=== PATIENT | male | born 1970 | race Caucasian/White ===

== ENCOUNTER 2017-01-19 23:34 | Emergency (ER) | payer BC ==
[~2017-01-19] VITALS: Ht 182.9 cm; Wt 94.4 kg
[2017-01-20 02:07] VITALS: BP 128/74
== END 2017-01-20 02:08 | disposition home or self-care (01) ==
LOC: EME 23:34
PROC: 0HQ0XZZ Repair Scalp Skin, External Approach (ICD-10-PCS; principal; 2017-01-20)
DX: S01.01XA Laceration without foreign body of scalp, initial encounter (principal); W07.XXXA Fall from chair, initial encounter; Y99.0 Civilian activity done for income or pay; E78.5 Hyperlipidemia, unspecified; I10 Essential (primary) hypertension; M10.9 Gout, unspecified; Z88.0 Allergy status to penicillin; Z87.891 Personal history of nicotine dependence
CPT/HCPCS: 99281; 99284